=== PATIENT | female | born 1955 | race Caucasian/White ===

== ENCOUNTER → 2024-01-03 | Outpatient (CLI) | payer BC ==
[2024-01-03 16:29] LABS: BUN/Creat Ratio 18.11 Ratio (12.00-20.00); Blood Urea Nitrogen 16.3 mg/dL (9.0-27.0); Carbon Dioxide 27.2 mmol/L (21.6-31.8); Chloride 104 mmol/L (96-109); Glucose 102 mg/dL (70-110); Magnesium 2.1 mg/dL (1.5-2.4); Potassium 4.2 mmol/L (3.5-5.5); Sodium 142 mmol/L (135-145)
== END | disposition home or self-care (01) ==
LOC: LABWHC1 09:02
PROVIDERS: ATTEND Internal Medicine Cardiovascular Disease
DX: I10 Essential (primary) hypertension (principal); E78.5 Hyperlipidemia, unspecified; I44.7 Left bundle-branch block, unspecified; I48.0 Paroxysmal atrial fibrillation; E88.810 Metabolic syndrome; I87.2 Venous insufficiency (chronic) (peripheral); R06.09 Other forms of dyspnea; R07.89 Other chest pain
CPT/HCPCS: 36415; 80048; 83735

== ENCOUNTER 2024-03-02 07:05 | Day surgery (SDC) | payer MEDICARE ==
[~2024-03-02 07:05] MED LIST: HYDROmorphone 0.5 MG/0.5 ML SYRINGE IVP PRN
[2024-03-02] MEDS: DEXAMETHASONE SOD PHOSPHATE 4 MG/ML 1 ML VIAL IV ONE (07:55)
[2024-03-02] MEDS: ONDANSETRON 4 MG/2 ML VIAL IVP ONE (07:55)
[2024-03-02] MEDS: LACTATED RINGERS 1,000 ML IV SCH (07:55)
[2024-03-02] MEDS: MIDAZOLAM 2 MG/2 ML VIAL IVP ONE (08:11)
[2024-03-02 08:21] VITALS: RESP 16
--- NOTE | 2024-03-02 08:33 | P.ANPRN ---
Procedure Note - Anesthesia - Nerve Block Performed Right Popliteal Single Time Out Performed: Yes (0810) Date of Procedure: 03/02/24 Procedure Start Time: :10 Procedure Stop Time: :20 Location of Patient: PreOp Indication: Acute Post-Operative Pain, Requested by Surgeon Sedation Type: Sedate with meaningful contact maintained Preparation: Sterile Prep, Sterile Dressing Position: Left Lateral Catheter: None Needle Types: Pajunk Needle Gauge: 21 Ultrasound used to visualize needle placement: Yes Ultrasound used to observe medication spread: Yes Injectate: 0.5% Ropivacaine (see comment for volume) (20 family of block solution containing 20 ML of 0.5% ropivacaine mixed with 5 mL of preservative free normal saline) Blood Aspirated: No Pain Paresthesia on Injection Noted: No Resistance on Injection: Normal Image Stored and Saved: Yes Events: Uneventful and Well Tolerated
--- NOTE | 2024-03-02 08:35 | P.ANPRN ---
Procedure Note - Anesthesia - Nerve Block Performed Right Adductor Canal Single Time Out Performed: Yes (0810) Date of Procedure: 03/02/24 Procedure Start Time: :10 Procedure Stop Time: :20 Location of Patient: PreOp Indication: Acute Post-Operative Pain, Requested by Surgeon Sedation Type: Sedate with meaningful contact maintained Preparation: Sterile Prep, Sterile Dressing Position: Supine Catheter: None Needle Types: Pajunk Needle Gauge: 21 Ultrasound used to visualize needle placement: Yes Ultrasound used to observe medication spread: Yes Injectate: 0.5% Ropivacaine (see comment for volume) (20 mL of block solution containing 10 ML of 0.5% ropivacaine mixed with 10 ML of preservative-free normal saline) Blood Aspirated: No Pain Paresthesia on Injection Noted: No Resistance on Injection: Normal Image Stored and Saved: Yes Events: Uneventful and Well Tolerated
[2024-03-02] MEDS ORDERED: ROPIVACAINE 5 MG/ML 30 ML VIAL ONE (08:50)
[2024-03-02] MEDS ORDERED: LIDOCAINE 1% INJ 10MG/ML (20 ML MDV) ONE (08:50)
[2024-03-02] MEDS ORDERED: PROPOFOL 10 MG/ML 20 ML VIAL IV ONE (08:50)
[2024-03-02] MEDS ORDERED: fentaNYL (PF) 50 MCG/ML 2 ML AMP ONE (08:50)
[2024-03-02] MEDS ORDERED: SODIUM CHLORIDE 0.9% (PF) 10 ML VIAL ONE (08:50)
[2024-03-02] MEDS ORDERED: ePHEDrine 50 MG/ML 1 ML VIAL ONE (08:50)
[2024-03-02] MEDS: ceFAZolin 1,000 MG in SODIUM CHLORIDE 0.9% 1,000 ML IRRIGATION ONE (08:55)
--- NOTE | 2024-03-02 10:02 | P.OP ---
Date of Procedure: 03/02/24 Preoperative Diagnosis: hallux rigidus right foot Postoperative Diagnosis: same Procedure(s) Performed: first metatarsal phalangeal joint arthrodesis right foot Implants: Arthrex MaxForce plate with screws Arthrex allograft Anesthesia: KARTHIKEYAN Surgeon: Yash Brewster Estimated Blood Loss (ml): 1 Pathology: none sent Condition: stable Disposition: PACU Description of Procedure: Prior to the patient being brought to the operating room, anesthesia administere d a nerve block on the surgical extremity. Then the patient was brought into the operating room and placed on table in the supine position. Timeout was taken to confirm correct patient identifiers, correct lateral surgery, and correct procedure. Once the staff in the room were in agreement with the timeout, the patient was induced and placed under general anesthesia. A well- padded tourniquet was placed on the ankle and then the foot was prepped and draped in the usual manner. The foot was exsanguinated and the tourniquet inflated to 250 mmHg. Attention was directed over the dorsal aspect of the first metatarsal phalangeal joint, where a linear incision was made between the long extensor tendon and the neurovascular structures. The incision was deepened down to the subcutaneous layer careful to identify, avoid, and retract any neurovascular structures and cauterize any bleeding vessels. Blunt dissection was continued through the subcutaneous layer down to the periosteum and capsule. A linear periosteal and capsular incision was made medial to the long extensor tendon. Those tissues were then sharply reflected off of the first metatarsal head and shaft as well as the base of the proximal phalanx. The soft tissue was released around the joint so that the joint could be mobilized and accessed. A guidewire was placed through the central aspect of the first metatarsal head parallel to the long access and within the medullary canal. Appropriate size reamers were used to shape the first metatarsal head. Then a concave reamer was inserted over the guidewire and used to remove the articular cartilage and subchondral bone. The wire was removed was used to aggressively fenestrate the head of the first metatarsal. The guidewire was then inserted at the central aspect of the articular surface of the base of the proximal phalanx. The wire was advanced parallel to the long access and within the medullary canal. The convex reamer was then used to remove the articular cartilage and subchondral bone. The guidewire was removed and used to fenestrate the surface. The wound was thoroughly irrigated with antibiotic saline. Arthrex Arthrocell was placed between the arthrodesis segments. A 0 bend first metatarsal phalangeal joint fusion plate was then positioned dorsally over the site. Temporary fixation was used to hold the plate in place. Fluoroscopy was used to check the placement of the plate as well as the joint alignment. Once both positions were satisfactory, a combination of locking and nonlocking screws were placed in the distal part of the plate into the proximal phalanx. The position of the joint and plate were checked again under fluoroscopy. Once both were satisfactory, a wire was placed in the base of the proximal phalanx and across the arthrodesis site to maintain the alignment. The offset drill guide was then placed in the compression slot of the plate. The guide was removed and then the compression device was inserted through the drill hole and engaged with the plate. The compression device was turned to further compress the joint. While holding in compression, another threaded olive wire was used to hold it in place. A drill hole through the proximal compression slot was then made and a nonlocking screw was inserted and tightened until it engaged the plate and provided further compression across the arthrodesis site. A nonlocking screw was then placed in the drill hole in the proximal aspect of the plate closest to the joint line. The final screw was a locking screw placed in the most proximal hole the plate. Final fluoroscopic imaging showed proper placement of all hardware, maintaining correction of the joint, and excellent compression across the arthrodesis site. The temporary fixation wire was removed and the joint thoroughly irrigated with antibiotic saline. The capsule and periosteal tissues were closed with 0 Vicryl. Subcu closure was done with 4-0 Monocryl. And skin closure was done with 4-0 Stratafix in a running subcuticular manner. Dermal glue was placed around the incision, and once dried, Steri-Strips are placed across incision. An Arthrex jumpstart dressing was placed directly over the incision and then a dry sterile dressings applied to the right foot. The tourniquet was released and capillary refill return to all digits on the foot. The patient was then placed in a well-padded, well molded plaster posterior mold/sugar tong splint. The ankle was held in neutral position until the splint was dried. Then anesthesia was reversed and the patient was taken recovery with vital signs stable.
[2024-03-02] MEDS ORDERED: HYDROcodone/APAP 5-325MG 1 EACH TAB ONE (10:42)
[2024-03-02 10:43] VITALS: TEMP 97
[2024-03-02] MEDS: HYDROcodone/APAP 5-325MG 1 EACH TAB PO ONE (10:48)
[2024-03-02 11:29] VITALS: BP 119/73; PULSE 72
== END 2024-03-02 11:41 | disposition home or self-care (01) ==
LOC: OR 07:05
PROVIDERS: ATTEND Podiatrist
DX: M20.21 Hallux rigidus, right foot (principal); G89.18 Other acute postprocedural pain; I10 Essential (primary) hypertension; F10.90 Alcohol use, unspecified, uncomplicated; Z83.3 Family history of diabetes mellitus; Z87.891 Personal history of nicotine dependence; Z79.899 Other long term (current) drug therapy
CPT/HCPCS: 28750; 64447; 64445; C1713; C1734; J2250; J1100; J2405; J0690; J2001; J3010; J2795; J2704